=== PATIENT | male | born 1985 | race Caucasian/White ===

== ENCOUNTER 2016-12-02 18:21 | Emergency (ER) | payer BC ==
[~2016-12-02] VITALS: Ht 177.8 cm; Wt 86.1 kg
[2016-12-02] MEDS ORDERED: VALIUM5 MG PO (18:50)
[2016-12-02] MEDS ORDERED: MOTRIN800 MG PO (18:50)
[2016-12-02 20:06] VITALS: BP 140/95
== END 2016-12-02 20:27 | disposition home or self-care (01) ==
LOC: EME 18:21
DX: M54.5 Low back pain (principal); X50.0XXA Overexertion from strenuous movement or load, initial encounter; Y93.B3 Activity, free weights; Y92.39 Other specified sports and athletic area as the place of occurrence of the external cause
CPT/HCPCS: 99281; 99284; J1100; J1885